=== PATIENT | female | born 1965 | race Caucasian/White ===

== ENCOUNTER 2018-02-01 17:41 | Emergency (ER) | payer OTHER ==
--- NOTE | 2018-02-01 18:31 | ED Physician Documentation ---
Upper Extremity Injury - HISTORIAN Historian: patient - HPI Stated Complaint: Fell with lawnchair in front of her causing pain to both arms/ hit face Chief Complaint: Upper Extremity Injury Onset: just prior to arrival Where: home Severity: moderate - ROS CONST: no problems. denies: fever, chills - PAST HX Past History: none, Rt handed, diabetes Type 2, other (HTN) - SOCIAL HX Smoking History: non-smoker Alcohol Use: none Drug Use: none - FAMILY HX Family History: other (DM, CAD) <Janes Whittaker - Last Filed: 02/01/18 18:28> - REVIEWED ASSESSMENTS Nursing Assessment Reviewed: Yes Vitals Reviewed: Yes <Jan Lewis - Last Filed: 02/01/18 19:39> - HPI Additional Information: 52yo white female who fell into a folding chair with bar of chair crushing her arms. Now complains of pain in he left fore arm arm, tingling sensation but is improved some. Having some pain in the right forearm and thumb area. Occured about 14:30. (Janes Whittaker) - PAST HX Allergies/Adverse Reactions: Allergies Allergy/AdvReac Type Severity Reaction Status Date / Time No Known Allergies Allergy Verified 02/01/18 18:03 Home Medications: Ambulatory Orders Medication Instructions Recorded Aspirin [Aspir-Low] 81 mg PO D 02/01/18 Dulaglutide [Trulicity] 0.75 mg IM WEEK 02/01/18 Fenofibrate,Micronized 134 mg PO D 02/01/18 [Fenofibrate] Insulin Glargine,Hum.rec.anlog 40 unit SQ HS 02/01/18 [Toujeo Solostar] Lisinopril/Hydrochlorothiazide 1 tab PO D 02/01/18 [Zestoretic] Metformin HCl [Metformin HCl] 500 mg PO D 02/01/18 - VITAL SIGNS Vital Signs: Vital Signs Temp Pulse Resp BP Pulse Ox 63 16 172/94 98 02/01/18 17:42 02/01/18 17:42 02/01/18 17:42 02/01/18 17:42 Progress <Janes Whittaker - Last Filed: 02/01/18 18:28> <Jan Lewis - Last Filed: 02/01/18 19:39> - Progress Progress: pt rec fr DR WHITTAKER approx 1700 hx repeated rev sxray and physical exam--will use cock up splint on lt wrist (Jan Lewis) ED Results Lab/Radiology <Janes Whittaker - Last Filed: 02/01/18 18:28> <Jan Lewis - Last Filed: 02/01/18 19:39> - Radiology Radiology Impressions: xray reveals no apparent osseous damage/injury (Jan Lewis) - Orders Orders: ED Orders Category Date Time Status BILAT FOREARM [RAD] Routine Exams 02/01/18 Taken HAND 3 VIEWS OR MORE [RAD] Stat Exams 02/01/18 Taken Upper Extremity Injury Physic - Physical Exam General Appearance: moderate distress Hand: normal inspection, non-tender. No: normal ROM Wrist: No: normal inspection, non-tender, normal ROM (prema lt wrist quite tender to movement or palpation color nail blanching ok) Elbow/Forearm: abrasions, bone tenderness, limited ROM (prema lt-some on rt). No : normal inspection, deformity, ecchymosis Shoulder: normal inspection, non-tender, no evidence of injury Neuro/Vascular/Tendon: no vascular compromise, motor nml, sensation nml, motor deficit, ROM limited by pain. No: abnml color, abnml warmth, abnml cap refill, pulse deficit, sensory deficit Skin: warm,dry. No: diaphoretic, cool, cyanotic, decubitus Head/ENT: nml inspection Neck/Back: nml inspection Resp/CVS: chest non-tender, breath sounds nml, heart sounds nml, no resp. distress, lungs clear, reg. rate & rhythm Abdomen: non-tender <Jan Lewis - Last Filed: 02/01/18 19:39> Discharge <Janes Whittaker - Last Filed: 02/01/18 18:28> Decision to Admit: NO Decision Time: 19:39 <Jan Lewis - Last Filed: 02/01/18 19:39> Clincal Impression: fall bilateral forearm and wrist injury-, nio fracture, hx dm and htn Referrals: Primary Doctor,No [Primary Care Provider] - 2 Days Comments: home rest lt cock up splint (Jan Lewis) Condition: Good Disposition: 01 HOME, SELF-CARE
[2018-02-01 20:20] VITALS: BP 154/72
--- NOTE | 2018-02-02 05:33 | Diagnostic Imaging Report ---
SHANIA HERRON [facility] [address] [facility] [address] [address] Report Submission Date: February 01, 2018 7:21:26 PM CDT Patient Study Name: LAWRENCE FISHER Date: February 01, 2018 6:43:57 PM CDT Modality Type: DX Gender: F Description: UPPER EXTREMITY : 61 Institution: [facility] Physician: SHANIA HERRON Bilateral forearms 2 views Date of Exam: February 01, 2018. History: INJURY WITH FALL (Hx) / ITS.REASON pian post fall Findings: The left radius and ulna are intact. The radiocarpal alignment is maintained. There is no evidence of acute fracture. The right radius and ulna are intact. The radiocarpal alignment is maintained. There is no evidence of acute fracture. Impression: No acute osseous abnormality. Electronically signed on February 01, 2018 7:21:26 PM CDT by: Aaron GREEN
--- NOTE | 2018-02-02 05:33 | Diagnostic Imaging Report ---
SHANIA HERRON [facility] [address] [facility] [address] [id number] Report Submission Date: February 01, 2018 7:20:05 PM CDT Patient Study Name: LAWRENCE FISHER Date: February 01, 2018 6:38:35 PM CDT Modality Type: DX Gender: F Description: UPPER EXTREMITY : 61 Institution: [facility] Physician: SHANIA HERRON Left hand 3 views Date of Exam: February 01, 2018. History: INJURY WITH FALL (Hx) / ITS.REASON pain post fall Findings: No acute fracture or dislocation is identified. The radiocarpal alignment is maintained. The carpals, metacarpals and phalanges are intact. Impression: No acute osseous abnormality. Electronically signed on February 01, 2018 7:20:05 PM CDT by: Aaron GREEN
== END 2018-02-01 20:00 | disposition home or self-care (01) ==
LOC: ED 17:41
DX: S59.911A Unspecified injury of right forearm, initial encounter (principal); S59.912A Unspecified injury of left forearm, initial encounter; S69.91XA Unspecified injury of right wrist, hand and finger(s), initial encounter; S69.92XA Unspecified injury of left wrist, hand and finger(s), initial encounter; E11.9 Type 2 diabetes mellitus without complications; I10 Essential (primary) hypertension; W19.XXXA Unspecified fall, initial encounter; Y92.9 Unspecified place or not applicable; Y93.9 Activity, unspecified; Y99.9 Unspecified external cause status
CPT/HCPCS: 73130; 99284; L3908